=== PATIENT | male | born 1965 | race Caucasian/White ===

== ENCOUNTER 2017-07-02 09:38 | Day surgery (SDC) | payer BC ==
[~2017-07-02] VITALS: Ht 193 cm; Wt 93.0 kg
--- NOTE | ~2017-07-02 | EGD ---
EGD REPORT [facility] [address] [id number] NAME: LORNE BRIGGS : [birth year] STATUS : REG [facility]#: [id number] AGE: 51 ADM/REG DATE : 07/02/17 MR#: [id number] REPORT SERV DATE: 07/02/17 DICTATED BY: SHANE RAZO DATE: 07/02/17 REPORT STATUS : Draft TRANSCRIBED BY: [facility] DATE: 07/02/17 Endoscopy Center Patient Name: Lorne Briggs Date of : 1965 Attending MD: SHANE RAZO MD Procedure Date No Time: 07/02/2017 Procedure: Colonoscopy Indications: High risk colon cancer surveillance: Personal history of colonic polyps, Last colonoscopy: June 2013 Referring MD: HEATH SONG Medicines: See the Anesthesia note for documentation of the administered medications Complications: No immediate complications. Procedure: Pre-Anesthesia Assessment: - ASA Grade Assessment: II - A patient with mild systemic disease. After I obtained informed consent, the scope was passed under direct vision. Throughout the procedure, the patient's blood pressure, pulse, and oxygen saturations were monitored continuously. The CF [id number] was introduced through the anus and advanced to the terminal ileum, with identification of the appendiceal orifice and IC valve. The colonoscopy was performed without difficulty. The patient tolerated the procedure well. The quality of the bowel preparation was adequate. Findings: The perianal and digital rectal examinations were normal. Internal hemorrhoids were found during retroflexion and were small. Diverticula were found in the sigmoid colon and in the descending colon. A sessile polyp was found in the cecum. The polyp was small in size. The polyp was removed with a cold biopsy forceps. Resection and retrieval were complete. A sessile polyp was found in the rectum. The polyp was small in size. The polyp was removed with a cold biopsy forceps. Resection and retrieval were complete. Impression: - Internal hemorrhoids. - Diverticulosis in the sigmoid colon and in the descending colon. - One small polyp in the cecum. Resected and retrieved. - One small polyp in the rectum. Resected and retrieved. Recommendation: - Patient has a contact number available for emergencies. The signs and symptoms of potential delayed EGD REPORT [address] [place]. [address] NAME: LORNE BRIGGS : [birth year] STATUS : REG [facility] [place] PAT#: [id number] AGE: 51 ADM/REG DATE : 07/02/17 MR#: [id number] REPORT SERV DATE: 07/02/17 DICTATED BY: SHANE RAZO DATE: 07/02/17 REPORT STATUS : Draft TRANSCRIBED BY: [employer] DATE: 07/02/17 complications were discussed with the patient. Return to normal activities tomorrow. Written discharge instructions were provided to the patient. - Regular diet. - Continue present medications. - Repeat colonoscopy in 5 years for surveillance. - FOR YOUR BIOPSY RESULTS: Please go to [email or web address] register to receive your results via the portal. Your biopsy results will be posted there in about 7 to 10 days. IF you do not see result in 10 days, call office. Procedure Code(s): --- Professional --- 42187, Colonoscopy, flexible, proximal to splenic flexure; with biopsy, single or multiple Diagnosis Code(s): --- Professional --- K64.8, Other hemorrhoids K57.30, Diverticulosis of large intestine without perforation or abscess without bleeding K62.1, Rectal polyp D12.0, Benign neoplasm of cecum Z86.010, Personal history of colonic polyps CPT copyright 2013 [employer]. All rights reserved. The codes documented in this report are preliminary and upon loft worker apprentice review may be revised to meet current compliance requirements. Shane Razo MD SHANE RAZO MD 07/02/2017 11:23 AM This report has been signed electronically. Number of Addenda: 0 Note Initiated On: 07/02/2017 11:01 AM Scope Withdrawal Time 0 hours 7 minutes 10 seconds [id number] [place] [id number]
[~2017-07-02 09:38] MED LIST: EZFE 200200 MG PO; METANX PO; VITAMIN D PO; [UNRECOGNIZED DRUG - OTHER] PO; [UNRECOGNIZED DRUG - OTHER] PO
== END 2017-07-02 23:59 | disposition home or self-care (01) ==
LOC: DMU 09:38
PROVIDERS: Internal Medicine Gastroenterology
PROC: 0DBP8ZX Excision of Rectum, Via Natural or Artificial Opening Endoscopic, Diagnostic (ICD-10-PCS; 2017-07-02)
PROC: 0DBH8ZX Excision of Cecum, Via Natural or Artificial Opening Endoscopic, Diagnostic (ICD-10-PCS; principal; 2017-07-02 11:00)
DX: Z12.11 Encounter for screening for malignant neoplasm of colon (principal); K62.1 Rectal polyp; K64.8 Other hemorrhoids; K57.30 Diverticulosis of large intestine without perforation or abscess without bleeding; M51.36 Other intervertebral disc degeneration, lumbar region; Z86.010 Personal history of colon polyps; Z98.890 Other specified postprocedural states
CPT/HCPCS: 88305